=== PATIENT | female | born 1985 | race Caucasian/White ===

== ENCOUNTER 2016-12-21 21:54 | Emergency (ER) | payer BC, OTHER ==
--- NOTE | 2016-12-21 22:01 | EDM.PDOC ---
ED HPI GENERAL MEDICAL PROBLEM - General Chief Complaint: Skin Complaint Stated Complaint: RASH LT LEG Time Seen by Provider: 12/21/16 22:01 Source of Information: Reports: Patient - History of Present Illness INITIAL COMMENTS - FREE TEXT/NARRATIVE: HISTORY AND PHYSICAL: History of present illness: []Patient presents with area of cellulitis on her left lower extremity medial calf there is a red painful central nidus with area of tender skin surrounding approximately 2 inch in diameter consistent with cellulitis no fluctuance or drainage to the lesion No fever nausea vomiting chills sweats Review of systems: As per history of present illness and below otherwise all systems reviewed and negative. Past medical history: As per history of present illness and as reviewed below otherwise noncontributory. Surgical history: As per history of present illness and as reviewed below otherwise noncontributory. Social history: No reported history of drug or alcohol abuse. Family history: As per history of present illness and as reviewed below otherwise noncontributory. Physical exam: HEENT: Atraumatic, normocephalic, pupils reactive, negative for conjunctival pallor or scleral icterus, mucous membranes moist, throat clear, neck supple, nontender, trachea midline. Lungs: Clear to auscultation, breath sounds equal bilaterally, chest nontender. Heart: S1S2, regular, negative for clicks, rubs, or JVD. Abdomen: Soft, nondistended, nontender. Negative for masses or hepatosplenomegaly. Negative for costovertebral tenderness. Pelvis: Stable nontender. Genitourinary: Deferred. Rectal: Deferred. Extremities: Atraumatic, negative for cords or calf pain. Neurovascular unremarkable. Neuro: Awake, alert, oriented. Cranial nerves II through XII unremarkable. Cerebellum unremarkable. Motor and sensory unremarkable throughout. Exam nonfocal. Diagnostics: []No exudate for culture Lesion demarcated with skin pen Therapeutics: []Bactrim double strength by mouth twice a day #20 no refill 1 tab by mouth now provided from stock Impression: []Cellulitis Definitive disposition and diagnosis as appropriate pending reevaluation and review of above. left lower leg Pain Score (Numeric/FACES): 5 - Related Data Allergies Allergy/AdvReac Type Severity Reaction Status Date / Time No Known Allergies Allergy Verified 12/21/16 22:04 Home Meds: Home Meds . [No Known Home Meds] 12/21/16 [History] ED ROS GENERAL - Review of Systems Review Of Systems: ROS reveals no pertinent complaints other than HPI. ED EXAM, SKIN/RASH Exam: See Below Course - Vital Signs Last Recorded V/S: Last Vital Signs Temp 36.9 C 12/21/16 22:05 Pulse 98 12/21/16 22:05 Resp 16 12/21/16 22:05 BP 127/75 12/21/16 22:05 Pulse Ox 98 12/21/16 22:05 - Orders/Labs/Meds Orders: Active Orders 24 hr Category Date Time Status Sulfamethoxazole/Trimethoprim [Septra DS] Med 12/21/16 22:13 Once 1 tab PO ONETIME ONE Departure - Departure Time of Disposition: 22:15 Disposition: Home, Self-Care 01 Condition: Good Clinical Impression: Cellulitis - Discharge Information Forms: ED Department Discharge Additional Instructions: Medication as prescribed Return if symptoms persist or worsen despite antibiotics Return if fever nausea vomiting chills sweats should they develop Follow-up with primary care in 2 weeks The following information is given to patients seen in the emergency department who are being discharged to home. This information is to outline your options for follow-up care. We provide all patients seen in our emergency department with a follow-up referral. The need for follow-up, as well as the timing and circumstances, are variable depending upon the specifics of your emergency department visit. If you don't have a primary care physician on staff, we will provide you with a referral. We always advise you to contact your personal physician following an emergency department visit to inform them of the circumstance of the visit and for follow-up with them and/or the need for any referrals to a consulting specialist. The emergency department will also refer you to a specialist when appropriate. This referral assures that you have the opportunity for follow-up care with a specialist. All of these measure are taken in an effort to provide you with optimal care, which includes your follow-up. Under all circumstances we always encourage you to contact your private physician who remains a resource for coordinating your care. When calling for follow-up care, please make the office aware that this follow-up is from your recent emergency room visit. If for any reason you are refused follow-up, please contact the [facility] emergency department at and asked to speak to the emergency department charge nurse. - My Orders Last 24 Hours: My Active Orders 12/21/16 22:13 Sulfamethoxazole/Trimethoprim [Septra DS] 1 tab PO ONETIME ONE - Assessment/Plan Last 24 Hours: My Active Orders 12/21/16 22:13 Sulfamethoxazole/Trimethoprim [Septra DS] 1 tab PO ONETIME ONE
[2016-12-21] MEDS ORDERED: Sulfamethoxazole/Trimethoprim 800-160 MG Tab PO ONE (22:13)
[2016-12-21 22:30] VITALS: BP 122/80
== END 2016-12-21 22:27 | disposition home or self-care (01) ==
LOC: MW.ED 21:54
DX: L03.116 Cellulitis of left lower limb (principal)
CPT/HCPCS: 99283; A9270

== ENCOUNTER 2017-10-04 11:50 | Inpatient (IN) | payer BC ==
[2017-10-04] MEDS ORDERED: Butorphanol 1 MG/ML SDV IVPUSH PRN (12:13)
[2017-10-04] MEDS ORDERED: Methylergonovine 0.2 MG/1 ML Amp IM PRN (12:13)
[2017-10-04] MEDS ORDERED: Sodium Chloride 0.9% 2.5 ML Syringe FLUSH PRN (12:13)
[2017-10-04] MEDS ORDERED: Lidocaine 1% 50 ML MDV INJECT PRN (12:13)
[2017-10-04] MEDS ORDERED: Nalbuphine 10 MG/1 ML Vial IVPUSH PRN (12:13)
[2017-10-04] MEDS ORDERED: Tranexamic Acid 1,000 MG in Sodium Chloride 0.9% 100 ML IV PRN (12:13)
[2017-10-04] MEDS ORDERED: Carboprost Tromethamine 250 MCG/1 ML Amp IM PRN (12:13)
[2017-10-04] MEDS ORDERED: Water For Irrigation,Sterile 1,000 ML Container IRR PRN (12:13)
[2017-10-04] MEDS ORDERED: Misoprostol 200 MCG Tab PO PRN (12:13)
[2017-10-04] MEDS ORDERED: Sodium Chloride 0.9% 10 ML Syringe FLUSH PRN (12:13)
[2017-10-04] MEDS ORDERED: Oxytocin/0.9 % Sodium Chloride 30 UNIT/500 ML BAG IV SCH (12:15)
--- NOTE | 2017-10-04 12:35 | PCM.LDHP ---
L&D History of Present Illness - General Date of Service: 10/04/17 Admit Problem/Dx: Patient Status Order with Admit Dx/Problem 10/04/17 12:14 Patient Status [ADT] Routine Admission Diagnosis/Problem Admission Diagnosis/Problem - planned 10/04/17 12:31 31 yo EDC 10/02/2017 40 2/7wks gest. O+, R-equivocal, GBS neg. SROM mec stained fluid, trans labor 7cm Source of Information: Patient History Limitations: Reports: No Limitations - History of Present Illness Timing/Duration: Reports: minutes: Location, : Reports: Abdomen Quality: Reports: Stabbing Severity: Moderate Improves with: Reports: None Worsens with: Reports: None Associated Symptoms: Reports: N - Related Data Allergies/Adverse Reactions: Allergies Allergy/AdvReac Type Severity Reaction Status Date / Time No Known Allergies Allergy Verified 12/21/16 22:04 Home Medications: Home Meds . [No Known Home Meds] 12/21/16 [History] Past Medical History HEENT History: Reports: None Cardiovascular History: Reports: None Respiratory History: Reports: None Gastrointestinal History: Reports: None Genitourinary History: Reports: None FLOOR WAXER History: Reports: None Musculoskeletal History: Reports: None Neurological History: Reports: None Psychiatric History: Reports: None Endocrine/Metabolic History: Reports: None Hematologic History: Reports: None Immunologic History: Reports: None Oncologic (Cancer) History: Reports: None Dermatologic History: Reports: None - Infectious Disease History Infectious Disease History: Reports: Chicken Pox - Past Surgical History Head Surgeries/Procedures: Reports: None Social & Family History - Family History Family Medical History: Noncontributory - Tobacco Use Smoking Status *Q: Never Smoker - Caffeine Use Caffeine Use: Reports: Coffee, Soda, Tea - Recreational Drug Use Recreational Drug Use: No H&P Review of Systems - Review of Systems: Review Of Systems: See Below General: Reports: No Symptoms HEENT: Reports: No Symptoms Pulmonary: Reports: No Symptoms Cardiovascular: Reports: No Symptoms Gastrointestinal: Reports: No Symptoms Genitourinary: Reports: No Symptoms Musculoskeletal: Reports: No Symptoms Skin: Reports: No Symptoms Psychiatric: Reports: No Symptoms Neurological: Reports: No Symptoms Hematologic/Lymphatic: Reports: No Symptoms Immunologic: Reports: No Symptoms L&D Exam - Exam Exam: See Below - Vital Signs Weight: 89.811 kg - OB Specific Movement: Active Heart Tones: Present Presentation: Vertex - Roblero Score Roblero Score Cervix Position: Anterior Roblero Score Consistency: Soft Roblero Score Effacement: >80% Roblero Score Dilation: > 5 cm Roblero Score Infant's Station: -1 ,0 Roblero Score Total: 12 - Exam General: Alert, Oriented, Cooperative HEENT: Hearing Intact Lungs: Clear to Auscultation, Normal Respiratory Effort Cardiovascular: Regular Rate, Regular Rhythm, Normal S1, Normal S2 GI/Abdominal Exam: Soft Rectal Exam: Deferred Genitourinary: Cervical fluid Back Exam: Full Range of Motion Extremities: Normal Range of Motion, Non-Tender, No Pedal Edema, Normal Capillary Refill Skin: Warm, Dry, Intact Neurological: Reflexes Equal Bilateral, Normal Speech, Normal Tone Psychiatric: Alert, Normal Affect, Normal Mood - Problem List (1) Supervision of normal IUP (intrauterine ) in primigravida SNOMED Code(s): 20108586, 671883762, 454835694, 933088132 ICD Code: Z34.00 - ENCNTR FOR SUPRVSN OF NORMAL FIRST , UNSP TRIMESTER Status: Acute Priority: High Current Visit: Yes Qualifiers: Trimester: third trimester Qualified Code(s): Z34.03 - Encounter for supervision of normal first , third trimester (2) SROM (spontaneous rupture of membranes) SNOMED Code(s): 349445512 ICD Code: EMY3037 - Status: Acute Priority: High Current Visit: Yes (3) Meconium in amniotic fluid affecting management of mother in third trimester SNOMED Code(s): 79501412, 16372103 ICD Code: O36.8930 - MATERNAL CARE FOR OTH PROBLEMS, THIRD TRIMESTER, UNSP Status: Acute Priority: High Current Visit: Yes Qualifiers: Fetus number: single or unspecified fetus Qualified Code(s): O36.8930 - Maternal care for other specified problems, third trimester, not applicable or unspecified Problem List Initiated/Reviewed/Updated: Yes Orders Last 24hrs: Active Orders 24 hr Category Date Time Status Patient Status [ADT] Routine ADT 10/04/17 12:14 Active Heart Tones [RC] CONTINUOUS Care 10/04/17 12:14 Active Non Stress Test [RC] PER UNIT ROUTINE Care 10/04/17 12:14 Active May Shower [RC] ASDIRECTED Care 10/04/17 12:14 Active Notify Provider [RC] PRN Care 10/04/17 12:14 Active Up ad [place] [RC] ASDIRECTED Care 10/04/17 12:14 Active Vaginal Exam [RC] PRN Care 10/04/17 12:14 Active Vital Signs [RC] PER UNIT ROUTINE Care 10/04/17 12:14 Active CBC W/O DIFF,HEMOGRAM [HEME] Routine Lab 10/04/17 12:14 Ordered TYPE AND SCREEN [BBK] Routine Lab 10/04/17 12:14 Ordered Butorphanol [Stadol] Med 10/04/17 12:13 Active 1 mg IVPUSH Q1H PRN Carboprost Tromethamine [Hemabate DS] Med 10/04/17 12:13 Active 250 mcg IM ASDIRECTED PRN Lactated Ringers [Ringers, Lactated] 1,000 ml Med 10/04/17 12:15 Active IV ASDIRECTED Lidocaine 1% [Xylocaine 1%] Med 10/04/17 12:13 Active 50 ml INJECT .ONCE PRN Methylergonovine [Methergine] Med 10/04/17 12:13 Active 0.2 mg IM ASDIRECTED PRN Misoprostol [Cytotec] Med 10/04/17 12:13 Active 200 mcg PO .ONCE PRN Nalbuphine [Nubain] Med 10/04/17 12:13 Active 10 mg IVPUSH Q1H PRN Oxytocin/0.9 % Sodium Chloride [Oxytocin 30 Unit/500 ML Med 10/04/17 12:15 Active -NS] 30 unit in 500 ml IV TITRATE Sodium Chloride 0.9% [Saline Flush] Med 10/04/17 12:13 Active 10 ml FLUSH ASDIRECTED PRN Sodium Chloride 0.9% [Saline Flush] Med 10/04/17 12:13 Active 2.5 ml FLUSH ASDIRECTED PRN Tranexamic Acid [Cyklokapron] 1,000 mg Med 10/04/17 12:13 Active Sodium Chloride 0.9% [Normal Saline] 100 ml IV ONETIME Water For Irrigation,Sterile [Sterile Water for Med 10/04/17 12:13 Active Irrigation] 1,000 ml IRR ASDIRECTED PRN Scalp Electrode [WOMSER] Per Unit Routine Oth 10/04/17 12:14 Ordered Peripheral IV Insertion Adult [OM.PC] Routine Oth 10/04/17 12:14 Ordered Resuscitation Status Routine Resus Stat 10/04/17 12:13 Ordered Medication Orders Butorphanol Tartrate (Stadol) 1 mg IVPUSH Q1H PRN PRN Reason: Pain Carboprost Tromethamine (Hemabate Ds) 250 mcg IM ASDIRECTED PRN PRN Reason: Post Hemorrhage Lactated Ringer's (Ringers, Lactated) 1,000 mls @ 150 mls/hr IV ASDIRECTED LYUBOV Oxytocin/Sodium Chloride (Oxytocin 30 Unit/500 Ml-Ns) 30 unit in 500 mls @ 2 mls/hr IV TITRATE LYUBOV Tranexamic Acid 1,000 mg/ (Sodium Chloride) 110 mls @ 660 mls/hr IV ONETIME PRN PRN Reason: Bleeding Lidocaine HCl (Xylocaine 1%) 50 ml INJECT .ONCE PRN PRN Reason: Laceration repair Methylergonovine Maleate (Methergine) 0.2 mg IM ASDIRECTED PRN PRN Reason: Post Hemorrhage Misoprostol (Cytotec) 200 mcg PO .ONCE PRN PRN Reason: Post Hemorrhage Nalbuphine HCl (Nubain) 10 mg IVPUSH Q1H PRN PRN Reason: Pain (severe 7-10) Sodium Chloride (Saline Flush) 10 ml FLUSH ASDIRECTED PRN PRN Reason: Keep Vein Open Sodium Chloride (Saline Flush) 2.5 ml FLUSH ASDIRECTED PRN PRN Reason: Keep Vein Open Sterile Water (Sterile Water For Irrigation) 1,000 ml IRR ASDIRECTED PRN PRN Reason: delivery Assessment/Plan Comment:: Labor A: 31 yo EDC 10/02/2017 40 2/7wks gest. O+, R-equivocal, GBS neg. SROM mec stained fluid, trans labor 7cm P: Admit, pain mngt prn, mec stained fluid, Peds notified, anticipate . Dr Dunbar updated
[2017-10-04] MEDS ORDERED: Ropivacaine 0.2% 2 MG/ML 20 ML SDV ONE (12:54)
[2017-10-04] MEDS: Lactated Ringers 1,000 ML IV SCH ×3 (13:06→15:47)
--- NOTE | 2017-10-04 13:23 | PCM.PREANE ---
Preanesthetic Assessment - Procedure Proposed Procedure: labor epidural - Anesthesia/Transfusion/Family Hx Anesthesia History: Prior Anesthesia Without Reaction Family History of Anesthesia Reaction: No - Review of Systems Other: Reports: None - Physical Assessment Height: 6 ft 1 in Weight: 89.811 kg ASA Class: 2 Mental Status: Alert & Oriented x3 Airway Class: Mallampati = 3 Dentition: Reports: Normal Dentition Thyro-Mental Finger Breadths: 2 Mouth Opening Finger Breadths: 3 ROM/Head Extension: Full - Lab Values: Laboratory Last Values WBC 12.54 K/uL (4.0-11.0) H 10/04/17 12:34 RBC 4.31 M/uL (4.30-5.90) 10/04/17 12:34 Hgb 13.5 g/dL (12.0-16.0) 10/04/17 12:34 Hct 38.2 % (36.0-46.0) 10/04/17 12:34 MCV 88.6 fL (80.0-98.0) 10/04/17 12:34 MCH 31.3 pg (27.0-32.0) 10/04/17 12:34 MCHC 35.3 g/dL (31.0-37.0) 10/04/17 12:34 RDW Std Deviation 44.2 fl (28.0-62.0) 10/04/17 12:34 RDW Coeff of Chandu 14 % (11.0-15.0) 10/04/17 12:34 Plt Count 156 K/uL (150-400) 10/04/17 12:34 MPV 11.70 fL (7.40-12.00) 10/04/17 12:34 Nucleated RBC % 0.0 /100WBC 10/04/17 12:34 Nucleated RBCs # 0 K/uL 10/04/17 12:34 - Allergies Allergies/Adverse Reactions: Allergies Allergy/AdvReac Type Severity Reaction Status Date / Time No Known Allergies Allergy Verified 12/21/16 22:04 - Blood Blood Available: Yes Product(s) Available: PRBC - Acknowledgements Anesthesia Type Planned: Epidural Pt an Appropriate Candidate for the Planned Anesthesia: Yes Alternatives and Risks of Anesthesia Discussed w Pt/Guardian: Yes Pt/Guardian Understands and Agrees with Anesthesia Plan: Yes PreAnesthesia Questionnaire HEENT History: Reports: None Cardiovascular History: Reports: None Respiratory History: Reports: None Gastrointestinal History: Reports: None Genitourinary History: Reports: None BUSINESS OBJECTS DEVELOPER History: Reports: None Musculoskeletal History: Reports: None Neurological History: Reports: None Psychiatric History: Reports: None Endocrine/Metabolic History: Reports: None Hematologic History: Reports: None Immunologic History: Reports: None Oncologic (Cancer) History: Reports: None Dermatologic History: Reports: None - Infectious Disease History Infectious Disease History: Reports: Chicken Pox - Past Surgical History Head Surgeries/Procedures: Reports: None - SUBSTANCE USE Smoking Status *Q: Never Smoker Recreational Drug Use History: No - HOME MEDS Home Medications: Home Meds . [No Known Home Meds] 12/21/16 [History] - CURRENT (IN HOUSE) MEDS Current Meds: Current Medications Butorphanol Tartrate (Stadol) 1 mg IVPUSH Q1H PRN PRN Reason: Pain Carboprost Tromethamine (Hemabate Ds) 250 mcg IM ASDIRECTED PRN PRN Reason: Post Hemorrhage Lactated Ringer's (Ringers, Lactated) 1,000 mls @ 150 mls/hr IV ASDIRECTED LYUBOV Last Admin: 10/04/17 13:06 Dose: 150 mls/hr Oxytocin/Sodium Chloride (Oxytocin 30 Unit/500 Ml-Ns) 30 unit in 500 mls @ 2 mls/hr IV TITRATE LYUBOV Tranexamic Acid 1,000 mg/ (Sodium Chloride) 110 mls @ 660 mls/hr IV ONETIME PRN PRN Reason: Bleeding Lidocaine HCl (Xylocaine 1%) 50 ml INJECT .ONCE PRN PRN Reason: Laceration repair Methylergonovine Maleate (Methergine) 0.2 mg IM ASDIRECTED PRN PRN Reason: Post Hemorrhage Misoprostol (Cytotec) 200 mcg PO .ONCE PRN PRN Reason: Post Hemorrhage Nalbuphine HCl (Nubain) 10 mg IVPUSH Q1H PRN PRN Reason: Pain (severe 7-10) Sodium Chloride (Saline Flush) 10 ml FLUSH ASDIRECTED PRN PRN Reason: Keep Vein Open Sodium Chloride (Saline Flush) 2.5 ml FLUSH ASDIRECTED PRN PRN Reason: Keep Vein Open Sterile Water (Sterile Water For Irrigation) 1,000 ml IRR ASDIRECTED PRN PRN Reason: delivery Discontinued Medications Fentanyl/Bupivacaine HCl (Fnellvps-Shmio-Pd 2 Mcg/Ml-0.125%) Confirm Administered Dose 100 mls @ as directed EP .STK-MED ONE Stop: 10/04/17 12:55 Ropivacaine (Naropin 0.2%) Confirm Administered Dose 20 ml .ROUTE .STK-MED ONE Stop: 10/04/17 12:55
[2017-10-04] MEDS ORDERED: Bisacodyl 10 MG Supp RECTAL PRN (18:38)
[2017-10-04] MEDS ORDERED: Benzocaine/Menthol 20%-0.5% Spray 78 GM Cannister TOP PRN (18:38)
[2017-10-04] MEDS ORDERED: Witch Hazel Medicated Pads 40/Jar TOP PRN (18:38)
[2017-10-04] MEDS ORDERED: Acetaminophen 500 MG Tab PO PRN ×2 (18:38)
[2017-10-04] MEDS ORDERED: Ibuprofen 400 MG Tab PO PRN (18:38)
[2017-10-04] MEDS ORDERED: Docusate Sodium 100 MG Cap PO PRN (18:38)
[2017-10-04] MEDS ORDERED: Lanolin 100% Cream 7 GM Tube TOP PRN (18:38)
[2017-10-04] MEDS ORDERED: oxyCODONE 5 MG Tab PO PRN (18:38)
[2017-10-05] MEDS: Ibuprofen 800 MG Tab PO PRN ×2 (03:48→23:04)
--- NOTE | 2017-10-05 07:49 | PCM48HPAN ---
Post Anesthesia Note - EVALUATION WITHIN 48HRS OF ANESTHETIC Vital Signs in Normal Range: Yes Patient Participated in Evaluation: Yes Respiratory Function Stable: Yes Airway Patent: Yes Cardiovascular Function Stable: Yes Hydration Status Stable: Yes Pain Control Satisfactory: Yes Nausea and Vomiting Control Satisfactory: Yes Mental Status Recovered: Yes Resp Rate: 16
--- NOTE | 2017-10-05 09:13 | OR ---
SURGEON: Rito Dunbar MD DATE OF PROCEDURE: 10/04/2017 DELIVERY NOTE: Ms. Romero is 31-year-old primigravida. She is followed in our clinic primarily by our nurse grapple crew leader. She is 40 weeks' . She is term. She is admitted in active labor. At the time of admission, she was 7 cm with intact membrane and her GBS status was negative. The patient had an artificial rupture of membrane. She had epidural anesthesia for labor analgesia. The patient progressed adequately until complete +2 station, and she pushed in excess of an hour. She was exhausted. I was consulted for possible vacuum extraction. At the time of my arrival, vital signs were stable. heart rate was category I. My examination showed the patient in vertex presentation, straight OA, and when the patient pushed, it was +2 to +3. I consulted with the patient about the vacuum extraction. After explaining and obtaining consent for that, Kiwi vacuum extraction was applied. With a couple of pushes and pulling, the patient was able to accomplish vaginal delivery of male fetus. The baby cried immediately. score is reported to be 8 and 9. The weight is [address] Leo has attended the delivery, and he has participated in the baby resuscitation. The placenta delivered spontaneous, complete, and intact. The patient had a first-degree perineal laceration and first-degree labial laceration, and I repaired both lacerations with 3-0 Vicryl in layer without any problem. Estimated blood loss was 300-350 mL. There was no complication in the delivery. There was no complication in the labor. heart rate was category I through the entire process. MIKALA / WIL /[id number]
--- NOTE | 2017-10-05 11:30 | PCM.PNPP ---
- General Info Date of Service: 10/05/17 Functional Status: Reports: Pain Controlled - Review of Systems General: Reports: No Symptoms HEENT: Reports: No Symptoms Pulmonary: Reports: No Symptoms Cardiovascular: Reports: No Symptoms Gastrointestinal: Reports: No Symptoms Genitourinary: Reports: No Symptoms Musculoskeletal: Reports: No Symptoms Skin: Reports: No Symptoms Neurological: Reports: No Symptoms Psychiatric: Reports: No Symptoms - Patient Data Vital Signs - Most Recent: Last Vital Signs Temp 36.4 C 10/05/17 08:31 Pulse 95 10/05/17 08:31 Resp 18 10/05/17 08:31 BP 123/80 10/05/17 08:31 Pulse Ox 96 10/05/17 08:31 Weight - Most Recent: 89.811 kg Lab Results - Last 24 Hours: Laboratory Results - last 24 hr 10/04/17 10/04/17 Range/Units 12:34 12:34 WBC 12.54 H (4.0-11.0) K/uL RBC 4.31 (4.30-5.90) M/uL Hgb 13.5 (12.0-16.0) g/dL Hct 38.2 (36.0-46.0) % MCV 88.6 (80.0-98.0) fL MCH 31.3 (27.0-32.0) pg MCHC 35.3 (31.0-37.0) g/dL RDW Std Deviation 44.2 (28.0-62.0) fl RDW Coeff of Chandu 14 (11.0-15.0) % Plt Count 156 (150-400) K/uL MPV 11.70 (7.40-12.00) fL Nucleated RBC % 0.0 /100WBC Nucleated RBCs # 0 K/uL Blood Type O POSITIVE Antibody Screen NEGATIVE Med Orders - Current: Current Medications Acetaminophen (Tylenol Extra Strength) 500 mg PO Q4H PRN PRN Reason: Pain Acetaminophen (Tylenol Extra Strength) 1,000 mg PO Q4H PRN PRN Reason: Pain Benzocaine/Menthol (Dermoplast Pain Relief 20%-0.5% [place]) 0 gm TOP ASDIRECTED PRN PRN Reason: Perineal Comfort Measure Bisacodyl (Dulcolax) 10 mg RECTAL .ONCE PRN PRN Reason: Constipation Docusate Sodium (Colace) 100 mg PO BID PRN PRN Reason: Constipation Emollient Ointment (Lansinoh Hpa) 0 gm TOP ASDIRECTED PRN PRN Reason: Sore Nipples Ibuprofen (Motrin) 400 mg PO Q4H PRN PRN Reason: Pain Ibuprofen (Motrin) 800 mg PO Q6H PRN PRN Reason: Pain Last Admin: 10/05/17 03:48 Dose: 800 mg Oxycodone HCl (Oxycodone) 5 mg PO Q2H PRN PRN Reason: Pain Witch Adelina (Tucks) 1 pad TOP ASDIRECTED PRN PRN Reason: comfort care Discontinued Medications Butorphanol Tartrate (Stadol) 1 mg IVPUSH Q1H PRN PRN Reason: Pain Carboprost Tromethamine (Hemabate Ds) 250 mcg IM ASDIRECTED PRN PRN Reason: Post Hemorrhage Lactated Ringer's (Ringers, Lactated) 1,000 mls @ 150 mls/hr IV ASDIRECTED [facility] Last Admin: 10/04/17 15:47 Dose: 150 mls/hr Oxytocin/Sodium Chloride (Oxytocin 30 Unit/500 Ml-Ns) 30 unit in 500 mls @ 2 mls/hr IV TITRATE [facility] Last Admin: 10/04/17 18:40 Dose: 2 mls/hr Tranexamic Acid 1,000 mg/ (Sodium Chloride) 110 mls @ 660 mls/hr IV ONETIME PRN PRN Reason: Bleeding Fentanyl/Bupivacaine HCl (Opbxqbzq-Wddto-Hk 2 Mcg/Ml-0.125%) Confirm Administered Dose 100 mls @ as directed EP .STK-MED ONE Stop: 10/04/17 12:55 Lidocaine HCl (Xylocaine 1%) 50 ml INJECT .ONCE PRN PRN Reason: Laceration repair Methylergonovine Maleate (Methergine) 0.2 mg IM ASDIRECTED PRN PRN Reason: Post Hemorrhage Misoprostol (Cytotec) 200 mcg PO .ONCE PRN PRN Reason: Post Hemorrhage Nalbuphine HCl (Nubain) 10 mg IVPUSH Q1H PRN PRN Reason: Pain (severe 7-10) Ropivacaine (Naropin 0.2%) Confirm Administered Dose 20 ml .ROUTE .STK-MED ONE Stop: 10/04/17 12:55 Sodium Chloride (Saline Flush) 10 ml FLUSH ASDIRECTED PRN PRN Reason: Keep Vein Open Sodium Chloride (Saline Flush) 2.5 ml FLUSH ASDIRECTED PRN PRN Reason: Keep Vein Open Sterile Water (Sterile Water For Irrigation) 1,000 ml IRR ASDIRECTED PRN PRN Reason: delivery Last Admin: 10/04/17 19:13 Dose: 1,000 ml - Infant Interaction Infant Disposition, : in Room with Family Infant Interaction: Holding Infant Feeding: Attempted ; Nursed Fair/Poor Support Person: - Recovery Exam Fundal Tone: Firm Fundal Level: 1 Fingerbreadths Below Umbilicus Fundal Placement: Midline Lochia Amount: Scant Lochia Color: Rubra/Red Perineum Description: Intact, Minimal Bruising/Swelling Episiotomy/Laceration: Approximated Bladder Status: Voiding Urinary Elimination: Voided Other Urinary Elimination, : dizziness while up to bathroom - Exam General: Alert, Oriented HEENT: Pupils Equal Neck: Supple Lungs: Clear to Auscultation, Normal Respiratory Effort Cardiovascular: Regular Rate, Regular Rhythm GI/Abdominal Exam: Normal Bowel Sounds, Soft, Non-Tender, No Organomegaly, No Distention, No Abnormal Bruit, No Mass, Pelvis Stable Extremities: Normal Inspection, Normal Range of Motion, Non-Tender, No Pedal Edema, Normal Capillary Refill Skin: Warm, Dry, Intact Wound/Incisions: Healing Well Neurological: No New Focal Deficit Psy/Mental Status: Alert, Normal Affect, Normal Mood - Problem List Review Problem List Initiated/Reviewed/Updated: Yes - Assessment Assessment:: Status post vacuum extraction day #1 patient is doing well with episiotomy is healing there is minimum bleeding - Plan Plan:: Labor A: 31 yo EDC 10/02/2017 40 2/7wks gest. O+, R-equivocal, GBS neg. SROM mec stained fluid, trans labor 7cm P: Admit, pain mngt prn, mec stained fluid, Peds notified, anticipate . Dr Dunbar updated
[2017-10-06] MEDS: Ibuprofen 800 MG Tab PO PRN (07:28)
[2017-10-06 07:35] VITALS: BP 121/82
--- NOTE | 2017-10-06 08:36 | PCM.PNPP ---
- General Info Date of Service: 10/06/17 Functional Status: Reports: Pain Controlled - Review of Systems General: Reports: No Symptoms HEENT: Reports: No Symptoms Pulmonary: Reports: No Symptoms Cardiovascular: Reports: No Symptoms Gastrointestinal: Reports: No Symptoms Genitourinary: Reports: No Symptoms Musculoskeletal: Reports: No Symptoms Skin: Reports: No Symptoms Neurological: Reports: No Symptoms Psychiatric: Reports: No Symptoms - General Info Date of Service: 10/06/17 - Patient Data Vital Signs - Most Recent: Last Vital Signs Temp 36.8 C 10/06/17 07:33 Pulse 98 10/06/17 07:33 Resp 16 10/06/17 07:33 BP 121/82 10/06/17 07:33 Pulse Ox 97 10/06/17 07:33 Weight - Most Recent: 89.811 kg Med Orders - Current: Current Medications Acetaminophen (Tylenol Extra Strength) 500 mg PO Q4H PRN PRN Reason: Pain Acetaminophen (Tylenol Extra Strength) 1,000 mg PO Q4H PRN PRN Reason: Pain Benzocaine/Menthol (Dermoplast Pain Relief 20%-0.5% [place]) 0 gm TOP ASDIRECTED PRN PRN Reason: Perineal Comfort Measure Bisacodyl (Dulcolax) 10 mg RECTAL .ONCE PRN PRN Reason: Constipation Docusate Sodium (Colace) 100 mg PO BID PRN PRN Reason: Constipation Emollient Ointment (Lansinoh Hpa) 0 gm TOP ASDIRECTED PRN PRN Reason: Sore Nipples Ibuprofen (Motrin) 400 mg PO Q4H PRN PRN Reason: Pain Ibuprofen (Motrin) 800 mg PO Q6H PRN PRN Reason: Pain Last Admin: 10/06/17 07:28 Dose: 800 mg Oxycodone HCl (Oxycodone) 5 mg PO Q2H PRN PRN Reason: Pain Witch Adelina (Tucks) 1 pad TOP ASDIRECTED PRN PRN Reason: comfort care Discontinued Medications Butorphanol Tartrate (Stadol) 1 mg IVPUSH Q1H PRN PRN Reason: Pain Carboprost Tromethamine (Hemabate Ds) 250 mcg IM ASDIRECTED PRN PRN Reason: Post Hemorrhage Lactated Ringer's (Ringers, Lactated) 1,000 mls @ 150 mls/hr IV ASDIRECTED LYUBOV Last Admin: 10/04/17 15:47 Dose: 150 mls/hr Oxytocin/Sodium Chloride (Oxytocin 30 Unit/500 Ml-Ns) 30 unit in 500 mls @ 2 mls/hr IV TITRATE [facility] Last Admin: 10/04/17 18:40 Dose: 2 mls/hr Tranexamic Acid 1,000 mg/ (Sodium Chloride) 110 mls @ 660 mls/hr IV ONETIME PRN PRN Reason: Bleeding Fentanyl/Bupivacaine HCl (Laollrou-Frqjc-Me 2 Mcg/Ml-0.125%) Confirm Administered Dose 100 mls @ as directed EP .Gigamon-MED ONE Stop: 10/04/17 12:55 Lidocaine HCl (Xylocaine 1%) 50 ml INJECT .ONCE PRN PRN Reason: Laceration repair Methylergonovine Maleate (Methergine) 0.2 mg IM ASDIRECTED PRN PRN Reason: Post Hemorrhage Misoprostol (Cytotec) 200 mcg PO .ONCE PRN PRN Reason: Post Hemorrhage Nalbuphine HCl (Nubain) 10 mg IVPUSH Q1H PRN PRN Reason: Pain (severe 7-10) Ropivacaine (Naropin 0.2%) Confirm Administered Dose 20 ml .ROUTE .Gigamon-MED ONE Stop: 10/04/17 12:55 Sodium Chloride (Saline Flush) 10 ml FLUSH ASDIRECTED PRN PRN Reason: Keep Vein Open Sodium Chloride (Saline Flush) 2.5 ml FLUSH ASDIRECTED PRN PRN Reason: Keep Vein Open Sterile Water (Sterile Water For Irrigation) 1,000 ml IRR ASDIRECTED PRN PRN Reason: delivery Last Admin: 10/04/17 19:13 Dose: 1,000 ml - Interaction Disposition, : in Room with Family Infant Interaction: Holding Infant Feeding: Attempted ; Nursed Fair/Poor Support Person: - Recovery Exam Fundal Tone: Firm Fundal Level: 1 Fingerbreadths Below Umbilicus Fundal Placement: Midline Lochia Amount: Scant Lochia Color: Rubra/Red Perineum Description: Intact, Minimal Bruising/Swelling Episiotomy/Laceration: None Bladder Status: Voiding Urinary Elimination: Voided Other Urinary Elimination, : dizziness while up to bathroom - Exam General: Alert, Oriented HEENT: Pupils Equal Neck: Supple Lungs: Clear to Auscultation, Normal Respiratory Effort Cardiovascular: Regular Rate, Regular Rhythm GI/Abdominal Exam: Normal Bowel Sounds, Soft, Non-Tender, No Organomegaly, No Distention, No Abnormal Bruit, No Mass, Pelvis Stable Extremities: Normal Inspection, Normal Range of Motion, Non-Tender, No Pedal Edema, Normal Capillary Refill Skin: Warm, Dry, Intact Wound/Incisions: Healing Well Neurological: No New Focal Deficit Psy/Mental Status: Alert, Normal Affect, Normal Mood - Problem List Review Problem List Initiated/Reviewed/Updated: Yes - Assessment Assessment:: Status post vacuum extraction day #1 patient is doing well with episiotomy is healing there is minimum bleeding - Plan Plan:: Labor A: 31 yo EDC 10/02/2017 40 2/7wks gest. O+, R-equivocal, GBS neg. SROM mec stained fluid, trans labor 7cm P: Admit, pain mngt prn, mec stained fluid, Peds notified, anticipate . Dr Dunbar updated
== END 2017-10-06 11:25 | disposition home or self-care (01) | DRG 560 ==
LOC: MW.OB 11:50 → OBSVTOIN 18:39 → MW.OB 23:59
PROVIDERS: ADMIT Advanced Practice Midwife; ATTEND Obstetrics & Gynecology
PROC: 10D07Z6 Extraction of Products of Conception, Vacuum, Via Natural or Artificial Opening (ICD-10-PCS; principal; 2017-10-04)
PROC: 10907ZC Drainage of Amniotic Fluid, Therapeutic from Products of Conception, Via Natural or Artificial Opening (ICD-10-PCS; 2017-10-04)
PROC: 0UQMXZZ Repair Vulva, External Approach (ICD-10-PCS; 2017-10-04)
PROC: 00HU33Z Insertion of Infusion Device into Spinal Canal, Percutaneous Approach (ICD-10-PCS; 2017-10-04)
PROC: 3E0R3BZ Introduction of Anesthetic Agent into Spinal Canal, Percutaneous Approach (ICD-10-PCS; 2017-10-04)
DX: O77.0 Labor and delivery complicated by meconium in amniotic fluid (principal); O75.81 Maternal exhaustion complicating labor and delivery; Z3A.40 40 weeks gestation of pregnancy; Z37.0 Single live birth; O70.0 First degree perineal laceration during delivery
CPT/HCPCS: 36415; 51702; 59025; 59409; 85027; 86850; 86900; 86901; A9270-GY; J2590; J2795; J7120

== ENCOUNTER 2020-03-11 13:44 | Inpatient (IN) | payer BC, OTHER ==
[2020-03-11] MEDS ORDERED: Lidocaine 1% 50 ML MDV INJECT PRN (14:05)
[2020-03-11] MEDS ORDERED: Water For Irrigation,Sterile 1,000 ML Container IRR PRN (14:05)
[2020-03-11] MEDS ORDERED: Carboprost Tromethamine 250 MCG/1 ML Amp IM PRN (14:05)
[2020-03-11] MEDS ORDERED: Nalbuphine 10 MG/1 ML Vial IVPUSH PRN (14:05)
[2020-03-11] MEDS ORDERED: Sodium Chloride 0.9% 10 ML Syringe FLUSH PRN (14:05)
[2020-03-11] MEDS ORDERED: Butorphanol 1 MG/ML SDV IVPUSH PRN (14:05)
[2020-03-11] MEDS ORDERED: Tranexamic Acid 1,000 MG in Sodium Chloride 0.9% 100 ML IV PRN (14:05)
[2020-03-11] MEDS ORDERED: Sodium Chloride 0.9% 2.5 ML Syringe FLUSH PRN (14:05)
[2020-03-11] MEDS ORDERED: Sodium Chloride 0.9% 10 ML SDV IV PRN (14:05)
[2020-03-11] MEDS ORDERED: Misoprostol 200 MCG Tab PO PRN (14:05)
[2020-03-11] MEDS ORDERED: Methylergonovine 0.2 MG/1 ML Amp IM PRN (14:05)
[2020-03-11] MEDS ORDERED: Terbutaline 1 MG/ML SDV SUBCUT PRN (14:09)
[2020-03-11] MEDS ORDERED: Oxytocin/0.9 % Sodium Chloride 30 UNIT/500 ML BAG IV SCH ×2 (14:15)
--- NOTE | 2020-03-11 14:35 | PCM.LDHP ---
L&D History of Present Illness - General Date of Service: 03/11/20 Admit Problem/Dx: Patient Status Order with Admit Dx/Problem 03/11/20 14:06 Patient Status [ADT] Routine Admission Diagnosis/Problem Admission Diagnosis/Problem 03/11/20 14:28 presenting at 38 3/7 weeks with grossly ruptured membranes; reports SROM clear at 0545 today. Denies regular uterine contractions at this time; uterine irritability noted on strip. O+, Rubella-immune, GBS negative. SVE per nurse report: 5cm/70%/-3. 03/11/20 14:36 Source of Information: Patient History Limitations: Reports: No Limitations - Related Data Allergies/Adverse Reactions: Allergies Allergy/AdvReac Type Severity Reaction Status Date / Time No Known Allergies Allergy Verified 12/21/16 22:04 Home Medications: Home Meds . 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 Musculoskeletal History: Reports: None Neurological History: Reports: None Psychiatric History: Reports: None Endocrine/Metabolic History: Reports: None Hematologic History: Reports: None Immunologic History: Reports: None Oncologic (Cancer) History: Reports: None Dermatologic History: Reports: None - Infectious Disease History Infectious Disease History: Reports: Chicken Pox - Past Surgical History Head Surgeries/Procedures: Reports: None Social & Family History - Family History Family Medical History: Noncontributory - Caffeine Use Caffeine Use: Reports: Coffee, Soda, Tea H&P Review of Systems - Review of Systems: Review Of Systems: See Below General: Reports: No Symptoms HEENT: Reports: No Symptoms Pulmonary: Reports: No Symptoms Cardiovascular: Reports: No Symptoms Gastrointestinal: Reports: No Symptoms Genitourinary: Reports: No Symptoms Musculoskeletal: Reports: No Symptoms Skin: Reports: No Symptoms Psychiatric: Reports: No Symptoms Neurological: Reports: No Symptoms Hematologic/Lymphatic: Reports: No Symptoms Immunologic: Reports: No Symptoms L&D Exam - Exam Exam: See Below - OB Specific Contraction Intensity: Irritability Movement: Active Heart Tones: Present Heart Rate (FHR) Variability: Moderate (6-25 bmp) Presentation: Vertex - Roblero Score Roblero Score Consistency: Soft Roblero Score Effacement: 51-70% Roblero Score Dilation: > 5 cm Roblero Score 's Station: -3 - Exam General: Alert, Oriented, Cooperative Lungs: Normal Respiratory Effort Cardiovascular: Regular Rate, Regular Rhythm GI/Abdominal Exam: Soft, Non-Tender Rectal Exam: Deferred Genitourinary: Deferred Back Exam: Normal Inspection, Full Range of Motion Extremities: Normal Inspection, Normal Range of Motion, Non-Tender, Normal Capillary Refill Skin: Warm, Dry, Intact Neurological: Strength Equal Bilateral, Normal Speech, Normal Tone, Sensation Intact Psychiatric: Alert, Normal Affect, Normal Mood - Problem List (1) Supervision of normal IUP (intrauterine ) in multigravida SNOMED Code(s): 199706096, 841881406, [id number] ICD Code: Z34.80 - ENCOUNTER FOR SUPRVSN OF NORMAL , UNSP TRIMESTER Status: Acute Priority: High Current Visit: Yes Qualifiers: Trimester: third trimester Qualified Code(s): Z34.83 - Encounter for supervision of other normal , third trimester Problem List Initiated/Reviewed/Updated: Yes Orders Last 24hrs: Active Orders 24 hr Category Date Time Status Patient Status [ADT] Routine ADT 03/11/20 14:06 Active Communication Order [RC] ASDIRECTED Care 03/11/20 14:09 Active Heart Tones [RC] CONTINUOUS Care 03/11/20 14:06 Active Non Stress Test [RC] PER UNIT ROUTINE Care 03/11/20 14:06 Active May Shower [RC] ASDIRECTED Care 03/11/20 14:06 Active Notify Provider [RC] PRN Care 03/11/20 14:06 Active Notify Provider [RC] PRN Care 03/11/20 14:09 Active Notify Provider [RC] PRN Care 03/11/20 14:09 Active Notify Provider [RC] STAT Care 03/11/20 14:09 Active Up ad [place] [RC] ASDIRECTED Care 03/11/20 14:06 Active Vaginal Exam [RC] PRN Care 03/11/20 14:06 Active Vital Signs [RC] PER UNIT ROUTINE Care 03/11/20 14:06 Active CBC W/O DIFF,HEMOGRAM [HEME] Routine Lab 03/11/20 14:06 Ordered RPR (SYPHILIS SERO) W/ RFLX [REF] Routine Lab 03/11/20 14:06 Ordered TYPE AND SCREEN [BBK] Routine Lab 03/11/20 14:06 Ordered Butorphanol [Stadol] Med 03/11/20 14:05 Active 1 mg IVPUSH Q1H PRN Carboprost Tromethamine [Hemabate DS] Med 03/11/20 14:05 Active 250 mcg IM ASDIRECTED PRN Lactated Ringers [Ringers, Lactated] 1,000 ml Med 03/11/20 14:15 Active IV ASDIRECTED Lidocaine 1% [Xylocaine 1%] Med 03/11/20 14:05 Active 50 ml INJECT ONETIME PRN Methylergonovine [Methergine] Med 03/11/20 14:05 Active 0.2 mg IM ASDIRECTED PRN Nalbuphine [Nubain] Med 03/11/20 14:05 Active 10 mg IVPUSH Q1H PRN Oxytocin/0.9 % Sodium Chloride [Oxytocin 30 Unit/500 ML Med 03/11/20 14:15 Active -NS] 30 unit in 500 ml IV TITRATE Oxytocin/0.9 % Sodium Chloride [Oxytocin 30 Unit/500 ML Med 03/11/20 14:15 Active -NS] 30 unit in 500 ml IV TITRATE Sodium Chloride 0.9% [Normal Saline] Med 03/11/20 14:05 Active 10 ml IV ASDIRECTED PRN Sodium Chloride 0.9% [Saline Flush] Med 03/11/20 14:05 Active 10 ml FLUSH ASDIRECTED PRN Sodium Chloride 0.9% [Saline Flush] Med 03/11/20 14:05 Active 2.5 ml FLUSH ASDIRECTED PRN Terbutaline [Brethine] Med 03/11/20 14:09 Active 0.25 mg SUBCUT ASDIRECTED PRN Tranexamic Acid [Cyklokapron] 1,000 mg Med 03/11/20 14:05 Active Sodium Chloride 0.9% [Normal Saline] 100 ml IV ONETIME Water For Irrigation,Sterile [Sterile Water for Med 03/11/20 14:05 Active Irrigation] 1,000 ml IRR ASDIRECTED PRN miSOPROStoL [Cytotec] Med 03/11/20 14:05 Active 200 mcg PO ONETIME PRN Scalp Electrode [WOMSER] Per Unit Routine Oth 03/11/20 14:06 Ordered Medication Administration Instruction [OM.PC] Q3H Oth 03/11/20 14:15 Ordered Peripheral IV Insertion Adult [OM.PC] Routine Oth 03/11/20 14:06 Ordered Resuscitation Status Routine Resus Stat 03/11/20 14:05 Ordered Medication Orders Butorphanol Tartrate (Stadol) 1 mg IVPUSH Q1H PRN PRN Reason: Pain Carboprost Tromethamine (Hemabate Ds) 250 mcg IM ASDIRECTED PRN PRN Reason: Post Hemorrhage Oxytocin/Sodium Chloride (Oxytocin 30 Unit/500 Ml-Ns) 30 unit in 500 mls @ 500 mls/hr IV TITRATE LYUBOV Tranexamic Acid 1,000 mg/ (Sodium Chloride) 110 mls @ 660 mls/hr IV ONETIME PRN PRN Reason: Bleeding Lactated Ringer's (Ringers, Lactated) 1,000 mls @ 150 mls/hr IV ASDIRECTED LYUBOV Oxytocin/Sodium Chloride (Oxytocin 30 Unit/500 Ml-Ns) 30 unit in 500 mls @ 2 mls/hr IV TITRATE LYUBOV; Protocol Lidocaine HCl (Xylocaine 1%) 50 ml INJECT ONETIME PRN PRN Reason: Laceration repair Methylergonovine Maleate (Methergine) 0.2 mg IM ASDIRECTED PRN PRN Reason: Post Hemorrhage Misoprostol (Cytotec) 200 mcg PO ONETIME PRN PRN Reason: Post Hemorrhage Nalbuphine HCl (Nubain) 10 mg IVPUSH Q1H PRN PRN Reason: Pain (severe 7-10) Sodium Chloride (Saline Flush) 10 ml FLUSH ASDIRECTED PRN PRN Reason: Keep Vein Open Sodium Chloride (Saline Flush) 2.5 ml FLUSH ASDIRECTED PRN PRN Reason: Keep Vein Open Sodium Chloride (Normal Saline) 10 ml IV ASDIRECTED PRN PRN Reason: IV Use Sterile Water (Sterile Water For Irrigation) 1,000 ml IRR ASDIRECTED PRN PRN Reason: delivery Terbutaline Sulfate (Brethine) 0.25 mg SUBCUT ASDIRECTED PRN PRN Reason: Tacysystole Assessment/Plan Comment:: Admit A: presenting at 38 3/7 weeks with grossly ruptured membranes; reports SROM clear at 0545 today. Denies regular uterine contractions at this time; uterine irritability noted on strip. O+, Rubella-immune, GBS negative. SVE per nurse report: 5cm/70%/-3. P: Admit. Pitocin to IVF. Anticipate . Epidural PRN. Dr. Dunbar updated.
[2020-03-11] MEDS: Lactated Ringers 1,000 ML IV SCH ×2 (15:11→17:45)
[2020-03-11] MEDS ORDERED: Ropivacaine HCl/PF 100 ML ONE (17:45)
[2020-03-11] MEDS ORDERED: fentaNYL 100 MCG/2 ML SDV ONE (17:45)
--- NOTE | 2020-03-11 18:09 | PCM.PREANE ---
Preanesthetic Assessment - Anesthesia/Transfusion/Family Hx Anesthesia History: Prior Anesthesia Without Reaction Family History of Anesthesia Reaction: No Transfusion History: No Prior Transfusion(s) - Physical Assessment NPO Status Date: 03/11/20 NPO Status Time: 09:00 Height: 1.85 m Weight: 93.44 kg ASA Class: 2 - Lab Values: Laboratory Last Values WBC 8.42 K/uL (4.0-11.0) 03/11/20 14:29 RBC 3.93 M/uL (4.30-5.90) L 03/11/20 14:29 Hgb 11.8 g/dL (12.0-16.0) L 03/11/20 14:29 Hct 34.8 % (36.0-46.0) L 03/11/20 14:29 MCV 88.5 fL (80.0-98.0) 03/11/20 14:29 MCH 30.0 pg (27.0-32.0) 03/11/20 14:29 MCHC 33.9 g/dL (31.0-37.0) 03/11/20 14:29 RDW Std Deviation 44.1 fl (28.0-62.0) 03/11/20 14:29 RDW Coeff of Chandu 14 % (11.0-15.0) 03/11/20 14:29 Plt Count 184 K/uL (150-400) 03/11/20 14:29 MPV 11.70 fL (7.40-12.00) 03/11/20 14:29 Nucleated RBC % 0.0 /100WBC 03/11/20 14:29 Nucleated RBCs # 0 K/uL 03/11/20 14:29 COVID-19 (SHAYY) NEGATIVE (NEGATIVE) 03/11/20 14:29 Blood Type O POSITIVE 03/11/20 14:29 Antibody Screen NEGATIVE 03/11/20 14:29 - Allergies Allergies/Adverse Reactions: Allergies Allergy/AdvReac Type Severity Reaction Status Date / Time No Known Allergies Allergy Verified 12/21/16 22:04 - Acknowledgements Anesthesia Type Planned: Epidural Pt an Appropriate Candidate for the Planned Anesthesia: Yes Alternatives and Risks of Anesthesia Discussed w Pt/Guardian: Yes Pt/Guardian Understands and Agrees with Anesthesia Plan: Yes PreAnesthesia Questionnaire HEENT History: Reports: None Cardiovascular History: Reports: None Respiratory History: Reports: None Gastrointestinal History: Reports: None Genitourinary History: Reports: None 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 [No Known Home Meds] 12/21/16 [History] - CURRENT (IN HOUSE) MEDS Current Meds: Current Medications Butorphanol Tartrate (Stadol) 1 mg IVPUSH Q1H PRN PRN Reason: Pain Carboprost Tromethamine (Hemabate Ds) 250 mcg IM ASDIRECTED PRN PRN Reason: Post Hemorrhage Oxytocin/Sodium Chloride (Oxytocin 30 Unit/500 Ml-Ns) 30 unit in 500 mls @ 500 mls/hr IV TITRATE LYUBOV Tranexamic Acid 1,000 mg/ (Sodium Chloride) 110 mls @ 660 mls/hr IV ONETIME PRN PRN Reason: Bleeding Lactated Ringer's (Ringers, Lactated) 1,000 mls @ 150 mls/hr IV ASDIRECTED LYUBOV Last Admin: 03/11/20 17:45 Dose: 999 mls/hr Documented by: Oxytocin/Sodium Chloride (Oxytocin 30 Unit/500 Ml-Ns) 30 unit in 500 mls @ 2 mls/hr IV TITRATE LYUBOV; Protocol Last Admin: 03/11/20 16:17 Dose: 2 munits/min, 2 mls/hr Documented by: Lidocaine HCl (Xylocaine 1%) 50 ml INJECT ONETIME PRN PRN Reason: Laceration repair Methylergonovine Maleate (Methergine) 0.2 mg IM ASDIRECTED PRN PRN Reason: Post Hemorrhage Misoprostol (Cytotec) 200 mcg PO ONETIME PRN PRN Reason: Post Hemorrhage Nalbuphine HCl (Nubain) 10 mg IVPUSH Q1H PRN PRN Reason: Pain (severe 7-10) Sodium Chloride (Saline Flush) 10 ml FLUSH ASDIRECTED PRN PRN Reason: Keep Vein Open Sodium Chloride (Saline Flush) 2.5 ml FLUSH ASDIRECTED PRN PRN Reason: Keep Vein Open Sodium Chloride (Normal Saline) 10 ml IV ASDIRECTED PRN PRN Reason: IV Use Sterile Water (Sterile Water For Irrigation) 1,000 ml IRR ASDIRECTED PRN PRN Reason: delivery Terbutaline Sulfate (Brethine) 0.25 mg SUBCUT ASDIRECTED PRN PRN Reason: Tacysystole Discontinued Medications Fentanyl (Sublimaze) Confirm Administered Dose 100 mcg .ROUTE .STK-MED ONE Stop: 03/11/20 17:46 Ropivacaine (Naropin 0.2%) Confirm Administered Dose 100 mls @ as directed .ROUTE .[employer]-MED ONE Stop: 03/11/20 17:46
--- NOTE | 2020-03-11 18:12 | PCM.PRNOTE ---
- Free Text/Narrative Note: Anes Note Patient requests epidural fo L&D. Sitting position, level L3-L4 midline approach. Sterile technique. Chloraprep scrub to lumbar area. Sterile fenestrated drape applied. Epidural space easily acieved using KATIE technique. KATIE at 3 cm. Cath threaded 5 cm with ease. Cath secured at skin at 11 cm using sterile clear adhesive dressing. 1755 Test 3 cc 1.5% lido with epi negative. 1759 Load 10 cc 0.2% ropivicaine with 1 mcg cc fentanyl in slow divided doses. 1805 Pump started with 90 cc same solution. Rate is 8 cc hr with 6 cc q 20 min prn bolus. Eli well. 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
--- NOTE | 2020-03-11 21:49 | PCM.DEL ---
L & D Note - General Info Date of Service: 03/11/20 Mother's Due Date: 03/22/20 - Delivery Note Labor: Spontaneous, Augmented by Oxytocin Delivery Outcome: Livebirth Infant Delivery Method: Spontaneous Vaginal Delivery-Single Presentation: Vertex Nuchal Cord: None Anesthesia Type: Epidural Episiotomy Type: None Laceration: 1st Degree Suture type: Vicryl Suture size: 3-0 Placenta: Intact, Spontaneous Cord: 3 Vessels Score 1 min: 9 Score 5 min: 9 Second Stage Interventions: Reports: Second Nurse Assessed Progress of Descent, Second Nurse Reviewed Contraction Pattern, Second Nurse Reviewed Heart Tones, Encouragement Given, Pushing Effectively, Pushing, Pulls Own Legs Back Delivery Comments (Free Text/Narrative):: viable male; epidural for pain; head delivered with good pushing; shoulders and body followed after; no nuchal; baby to mom's abdomen [id number] for assessment; APGARs 9/9; weight: 9 lbs 2 oz; placenta delivered grossly intact, shea; 3VC; EBL 300 mL; pitocin to IVF; 1st degree perineal laceration, repaired with 3-0 vicryl; mom and baby left in stable condition with nurse at bedside for assessment - General Info Date of Service: 03/11/20 Admission Dx/Problem (Free Text): Patient Status Order with Admit Dx/Problem 03/11/20 14:06 Patient Status [ADT] Routine Admission Diagnosis/Problem Admission Diagnosis/Problem 03/11/20 14:28 presenting at 38 3/7 weeks with grossly ruptured membranes; reports SROM clear at 0545 today. Denies regular uterine contractions at this time; uterine irritability noted on strip. O+, Rubella-immune, GBS negative. SVE per nurse report: 5cm/70%/-3. 03/11/20 14:36 Functional Status: Reports: Pain Controlled - Review of Systems General: Reports: No Symptoms HEENT: Reports: No Symptoms Pulmonary: Reports: No Symptoms Cardiovascular: Reports: No Symptoms Gastrointestinal: Reports: No Symptoms Genitourinary: Reports: No Symptoms Musculoskeletal: Reports: No Symptoms Skin: Reports: No Symptoms Neurological: Reports: No Symptoms Psychiatric: Reports: No Symptoms - Patient Data Weight - Most Recent: 206 lb Lab Results Last 24 Hours: Laboratory Results - last 24 hr 0903/11/20 03/11/20 Range/Units 14:29 14:29 14:29 WBC 8.42 (4.0-11.0) K/uL RBC 3.93 L (4.30-5.90) M/uL Hgb 11.8 L (12.0-16.0) g/dL Hct 34.8 L (36.0-46.0) % MCV 88.5 (80.0-98.0) fL MCH 30.0 (27.0-32.0) pg MCHC 33.9 (31.0-37.0) g/dL RDW Std Deviation 44.1 (28.0-62.0) fl RDW Coeff of Chandu 14 (11.0-15.0) % Plt Count 184 (150-400) K/uL MPV 11.70 (7.40-12.00) fL Nucleated RBC % 0.0 /100WBC Nucleated RBCs # 0 K/uL COVID-19 (SHAYY) NEGATIVE (NEGATIVE) Blood Type O POSITIVE Antibody Screen NEGATIVE Med Orders - Current: Current Medications Butorphanol Tartrate (Stadol) 1 mg IVPUSH Q1H PRN PRN Reason: Pain Carboprost Tromethamine (Hemabate Ds) 250 mcg IM ASDIRECTED PRN PRN Reason: Post Hemorrhage Oxytocin/Sodium Chloride (Oxytocin 30 Unit/500 Ml-Ns) 30 unit in 500 mls @ 500 mls/hr IV TITRATE LYUBOV Tranexamic Acid 1,000 mg/ (Sodium Chloride) 110 mls @ 660 mls/hr IV ONETIME PRN PRN Reason: Bleeding Lactated Ringer's (Ringers, Lactated) 1,000 mls @ 150 mls/hr IV ASDIRECTED LYUBOV Last Admin: 03/11/20 17:45 Dose: 999 mls/hr Documented by: Oxytocin/Sodium Chloride (Oxytocin 30 Unit/500 Ml-Ns) 30 unit in 500 mls @ 2 mls/hr IV TITRATE LYUBOV; Protocol Last Titration: 03/11/20 17:45 Dose: 4 munits/min, 4 mls/hr Documented by: Lidocaine HCl (Xylocaine 1%) 50 ml INJECT ONETIME PRN PRN Reason: Laceration repair Methylergonovine Maleate (Methergine) 0.2 mg IM ASDIRECTED PRN PRN Reason: Post Hemorrhage Misoprostol (Cytotec) 200 mcg PO ONETIME PRN PRN Reason: Post Hemorrhage Nalbuphine HCl (Nubain) 10 mg IVPUSH Q1H PRN PRN Reason: Pain (severe 7-10) Sodium Chloride (Saline Flush) 10 ml FLUSH ASDIRECTED PRN PRN Reason: Keep Vein Open Sodium Chloride (Saline Flush) 2.5 ml FLUSH ASDIRECTED PRN PRN Reason: Keep Vein Open Sodium Chloride (Normal Saline) 10 ml IV ASDIRECTED PRN PRN Reason: IV Use Sterile Water (Sterile Water For Irrigation) 1,000 ml IRR ASDIRECTED PRN PRN Reason: delivery Terbutaline Sulfate (Brethine) 0.25 mg SUBCUT ASDIRECTED PRN PRN Reason: Tacysystole Discontinued Medications Fentanyl (Sublimaze) Confirm Administered Dose 100 mcg .ROUTE .Crispify ONE Stop: 03/11/20 17:46 Last Admin: 03/11/20 19:47 Dose: Not Given Documented by: Ropivacaine (Naropin 0.2%) Confirm Administered Dose 100 mls @ as directed .ROUTE .Crispify ONE Stop: 03/11/20 17:46 Last Admin: 03/11/20 19:47 Dose: Not Given Documented by: - Exam General: Alert, Oriented, Cooperative, No Acute Distress Lungs: Normal Respiratory Effort Cardiovascular: Regular Rate, Regular Rhythm GI/Abdominal Exam: Soft, Non-Tender Back Exam: Normal Inspection Extremities: Normal Inspection, Non-Tender, No Pedal Edema, Normal Capillary Ref ill Skin: Warm, Dry, Intact Wound/Incisions: Healing Well Neurological: No New Focal Deficit, Normal Speech, Normal Tone Psy/Mental Status: Alert, Normal Affect, Normal Mood - Problem List & Annotations (1) Supervision of normal IUP (intrauterine ) in multigravida SNOMED Code(s): 738561225, 361992720, 109781486 Code(s): Z34.80 - ENCOUNTER FOR SUPRVSN OF NORMAL , UNSP TRIMESTER Status: Acute Priority: High Current Visit: Yes Qualifiers: Trimester: third trimester Qualified Code(s): Z34.83 - Encounter for supervision of other normal , third trimester (2) (spontaneous vaginal delivery) SNOMED Code(s): 320830112 Code(s): O80 - ENCOUNTER FOR FULL-TERM UNCOMPLICATED DELIVERY Status: Acute Priority: High Current Visit: Yes - Problem List Review Problem List Initiated/Reviewed/Updated: Yes - My Orders Last 24 Hours: My Active Orders 03/11/20 14:05 Butorphanol [Stadol] 1 mg IVPUSH Q1H PRN Carboprost Tromethamine [Hemabate DS] 250 mcg IM ASDIRECTED PRN Lidocaine 1% [Xylocaine 1%] 50 ml INJECT ONETIME PRN Methylergonovine [Methergine] 0.2 mg IM ASDIRECTED PRN Nalbuphine [Nubain] 10 mg IVPUSH Q1H PRN Sodium Chloride 0.9% [Normal Saline] 10 ml IV ASDIRECTED PRN Sodium Chloride 0.9% [Saline Flush] 10 ml FLUSH ASDIRECTED PRN Sodium Chloride 0.9% [Saline Flush] 2.5 ml FLUSH ASDIRECTED PRN Tranexamic Acid [Cyklokapron] 1,000 mg Sodium Chloride 0.9% [Normal Saline] 100 ml IV ONETIME Water For Irrigation,Sterile [Sterile Water for Irrigation] 1,000 ml IRR ASDIRECTED PRN miSOPROStoL [Cytotec] 200 mcg PO ONETIME PRN Resuscitation Status Routine 03/11/20 14:06 Patient Status [ADT] Routine Heart Tones [RC] CONTINUOUS Non Stress Test [RC] PER UNIT ROUTINE May Shower [RC] ASDIRECTED Notify Provider [RC] PRN Up ad [place] [RC] ASDIRECTED Vaginal Exam [RC] PRN Vital Signs [RC] PER UNIT ROUTINE Scalp Electrode [WOMSER] Per Unit Routine Peripheral IV Insertion Adult [OM.PC] Routine 03/11/20 14:09 Communication Order [RC] ASDIRECTED Notify Provider [RC] PRN Notify Provider [RC] PRN Notify Provider [RC] STAT Terbutaline [Brethine] 0.25 mg SUBCUT ASDIRECTED PRN 03/11/20 14:15 Lactated Ringers [Ringers, Lactated] 1,000 ml IV ASDIRECTED Oxytocin/0.9 % Sodium Chloride [Oxytocin 30 Unit/500 ML-NS] 30 unit in 500 ml IV TITRATE Oxytocin/0.9 % Sodium Chloride [Oxytocin 30 Unit/500 ML-NS] 30 unit in 500 ml IV TITRATE Medication Administration Instruction [OM.PC] Q3H 03/11/20 14:29 RPR (SYPHILIS SERO) W/ RFLX [REF] Routine - Plan Plan:: Admit A: presenting at 38 3/7 weeks with grossly ruptured membranes; reports SROM clear at 0545 today. Denies regular uterine contractions at this time; uterine irritability noted on strip. O+, Rubella-immune, GBS negative. SVE per nurse report: 5cm/70%/-3. P: Admit. Pitocin to IVF. Anticipate . Epidural PRN. Dr. Dunbar updated. Delivery A: viable male; epidural for pain; APGARs 9/9; weight: 9 lbs 2 oz; placenta delivered grossly intact, shea; 3VC; EBL 300 mL; pitocin to IVF; 1st degree perineal laceration, repaired with 3-0 vicryl; mom and baby left in stable condition with nurse at bedside for assessment P: Routine plan of care; Dr. Dunbar updated.
[2020-03-11] MEDS ORDERED: oxyCODONE 5 MG Tab PO PRN (21:50)
[2020-03-11] MEDS ORDERED: Lanolin 100% Cream 7 GM Tube TOP PRN (21:50)
[2020-03-11] MEDS ORDERED: Ibuprofen 400 MG Tab PO PRN (21:50)
[2020-03-11] MEDS ORDERED: Docusate Sodium 100 MG Cap PO PRN (21:50)
[2020-03-11] MEDS ORDERED: Bisacodyl 10 MG Supp RECTAL PRN (21:50)
[2020-03-11] MEDS ORDERED: Acetaminophen 500 MG Tab PO PRN (21:50)
[2020-03-12] MEDS: Benzocaine/Menthol 20%-0.5% Spray 78 GM Cannister TOP PRN (00:28)
[2020-03-12] MEDS: Witch Hazel Medicated Pads 40/Jar TOP PRN (00:28)
[2020-03-12] MEDS: Ibuprofen 800 MG Tab PO PRN ×3 (00:59→22:30)
--- NOTE | 2020-03-12 08:24 | OR ---
SURGEON: Rito Dunbar MD DATE OF PROCEDURE: 03/11/2020 Ms. Romero is 34. She is para 3-0-2-3. She is admitted for elective induction. She is 39 weeks. The patient is induced by Pitocin and she responded very well. She had epidural anesthesia for labor analgesia at 6 cm. She continued with Pitocin. The patient became complete-complete and she was pushing in excess of an hour and half, and I was consulted for possible vacuum extraction. At the time of my arrival, the patient's vital signs were stable. heart rate was category I. Vaginal examination revealed that the patient is complete-complete, vertex, 0 to +1 station at LOT, and she was amenable and accessible to vacuum extraction. After explaining the vacuum extraction and obtaining consent from the patient, kiwi vacuum extraction was performed. With the patient pushing and one pull, I was able to rotate the head to OA position and accomplish a vaginal delivery of the head and then Zarina Sreekanth finished the rest of the delivery. Fetus cried immediately. score reported to be 8 and 9. The placenta delivered spontaneously complete and intact. There was no labial, vaginal, or perineal laceration. Estimated blood loss 350 to 400 mL. heart rate was category 1 through the entire process of labor and delivery. There was no complication in the labor process and in the delivery. MIKALA / WIL /[id number]
--- NOTE | 2020-03-12 08:31 | PCM.DCSUM1 ---
Discharge Summary - Hospital Course Free Text/Narrative:: Discharge home with baby. Follow up in the clinic in six weeks for routine visit. Diagnosis: Stroke: No Modified [place] Scale: No Symptoms at All Modified [place] Scale Score: 0 - Discharge Data Discharge Date: 03/12/20 Discharge Disposition: Home, Self-Care 01 Condition: Good - Referral to Home Health Primary Care Physician: PCP None - Discharge Diagnosis/Problem(s) (1) Supervision of normal IUP (intrauterine ) in multigravida SNOMED Code(s): 712643896, 013307970, 095887423 ICD Code: Z34.80 - ENCOUNTER FOR SUPRVSN OF NORMAL , UNSP TRIMESTER Status: Acute Priority: High Current Visit: Yes Qualifiers: Trimester: third trimester Qualified Code(s): Z34.83 - Encounter for supervision of other normal , third trimester (2) (spontaneous vaginal delivery) SNOMED Code(s): 017272477 ICD Code: O80 - ENCOUNTER FOR FULL-TERM UNCOMPLICATED DELIVERY Status: Acute Priority: High Current Visit: Yes - Patient Instructions Diet: Regular Diet as Tolerated, Drink 8-10+ Glasses/Day Activity: As Tolerated, No Strenuous Activities, Rest and Relax Today Driving: May Drive Today Showering/Bathing: May Shower Notify Provider of: Fever, Increased Pain, Swelling and Redness, Drainage, Nausea and/or Vomiting - Discharge Plan *PRESCRIPTION DRUG MONITORING PROGRAM REVIEWED*: Not Applicable *COPY OF PRESCRIPTION DRUG MONITORING REPORT IN PATIENT SCOTT: Not Applicable Prescriptions/Med Rec: Ibuprofen [Motrin] 800 mg PO Q6H PRN #90 tablet PRN Reason: Pain Home Medications: Home Meds Ibuprofen [Motrin] 800 mg PO Q6H PRN #90 tablet 03/12/20 [Rx] Oxygen Therapy Mode: Room Air - Discharge Summary/Plan Comment DC Time >30 min.: Yes - General Info Date of Service: 03/12/20 Admission Dx/Problem (Free Text: Patient Status Order with Admit Dx/Problem 03/11/20 14:06 Patient Status [ADT] Routine Admission Diagnosis/Problem Admission Diagnosis/Problem 03/11/20 14:28 presenting at 38 3/7 weeks with grossly ruptured membranes; reports SROM clear at 0545 today. Denies regular uterine contractions at this time; uterine irritability noted on strip. O+, Rubella-immune, GBS negative. SVE per nurse report: 5cm/70%/-3. 03/11/20 14:36 Functional Status: Reports: Pain Controlled, Tolerating Diet, Ambulating, Urinating - Review of Systems General: Reports: No Symptoms HEENT: Reports: No Symptoms Pulmonary: Reports: No Symptoms Cardiovascular: Reports: No Symptoms Gastrointestinal: Reports: No Symptoms Genitourinary: Reports: No Symptoms Musculoskeletal: Reports: No Symptoms Skin: Reports: No Symptoms Neurological: Reports: No Symptoms Psychiatric: Reports: No Symptoms - Patient Data Vitals - Most Recent: Last Vital Signs Temp 97.3 F 03/12/20 05:00 Pulse 66 03/12/20 05:00 Resp 16 03/12/20 05:00 BP 117/66 03/12/20 05:00 Pulse Ox Weight - Most Recent: 206 lb Lab Results - Last 24 hrs: Laboratory Results - last 24 hr 03/11/20 03/11/20 03/11/20 Range/Units 14:29 14:29 14:29 WBC 8.42 (4.0-11.0) K/uL RBC 3.93 L (4.30-5.90) M/uL Hgb 11.8 L (12.0-16.0) g/dL Hct 34.8 L (36.0-46.0) % MCV 88.5 (80.0-98.0) fL MCH 30.0 (27.0-32.0) pg MCHC 33.9 (31.0-37.0) g/dL RDW Std Deviation 44.1 (28.0-62.0) fl RDW Coeff of Chandu 14 (11.0-15.0) % Plt Count 184 (150-400) K/uL MPV 11.70 (7.40-12.00) fL Nucleated RBC % 0.0 /100WBC Nucleated RBCs # 0 K/uL COVID-19 (SHAYY) NEGATIVE (NEGATIVE) Blood Type O POSITIVE Antibody Screen NEGATIVE 03/12/20 Range/Units 05:13 WBC (4.0-11.0) K/uL RBC (4.30-5.90) M/uL Hgb 10.8 L (12.0-16.0) g/dL Hct 33.2 L (36.0-46.0) % MCV (80.0-98.0) fL MCH (27.0-32.0) pg MCHC (31.0-37.0) g/dL RDW Std Deviation (28.0-62.0) fl RDW Coeff of Chandu (11.0-15.0) % Plt Count (150-400) K/uL MPV (7.40-12.00) fL Nucleated RBC % /100WBC Nucleated RBCs # K/uL COVID-19 (SHAYY) (NEGATIVE) Blood Type Antibody Screen Med Orders - Current: Current Medications Acetaminophen (Tylenol Extra Strength) 500 mg PO Q4H PRN PRN Reason: Pain Acetaminophen (Tylenol Extra Strength) 1,000 mg PO Q4H PRN PRN Reason: Pain Benzocaine/Menthol (Dermoplast Pain Relief 20%-0.5% Cecil) 78 gm TOP ASDIRECTED PRN PRN Reason: Perineal Comfort Measure Last Admin: 03/12/20 00:28 Dose: 1 canister Documented by: Bisacodyl (Dulcolax) 10 mg RECTAL ONETIME PRN PRN Reason: Constipation Docusate Sodium (Colace) 100 mg PO BID PRN PRN Reason: Constipation Emollient Ointment (Lansinoh Hpa) 0 gm TOP ASDIRECTED PRN PRN Reason: Sore Nipples Ibuprofen (Motrin) 400 mg PO Q4H PRN PRN Reason: Pain Ibuprofen (Motrin) 800 mg PO Q6H PRN PRN Reason: Pain Last Admin: 03/12/20 00:59 Dose: 800 mg Documented by: Oxycodone HCl (Oxycodone) 5 mg PO Q2H PRN PRN Reason: Pain Witch Adelina (Tucks) 1 pad TOP ASDIRECTED PRN PRN Reason: comfort care Last Admin: 03/12/20 00:28 Dose: 1 container Documented by: Discontinued Medications Butorphanol Tartrate (Stadol) 1 mg IVPUSH Q1H PRN PRN Reason: Pain Carboprost Tromethamine (Hemabate Ds) 250 mcg IM ASDIRECTED PRN PRN Reason: Post Hemorrhage Fentanyl (Sublimaze) Confirm Administered Dose 100 mcg .ROUTE .STK-MED ONE Stop: 03/11/20 17:46 Last Admin: 03/11/20 19:47 Dose: Not Given Documented by: Oxytocin/Sodium Chloride (Oxytocin 30 Unit/500 Ml-Ns) 30 unit in 500 mls @ 500 mls/hr IV TITRATE LYUBOV Tranexamic Acid 1,000 mg/ (Sodium Chloride) 110 mls @ 660 mls/hr IV ONETIME PRN PRN Reason: Bleeding Lactated Ringer's (Ringers, Lactated) 1,000 mls @ 150 mls/hr IV ASDIRECTED LYUBOV Last Admin: 03/11/20 17:45 Dose: 999 mls/hr Documented by: Oxytocin/Sodium Chloride (Oxytocin 30 Unit/500 Ml-Ns) 30 unit in 500 mls @ 2 mls/hr IV TITRATE LYUBOV; Protocol Last Titration: 03/11/20 20:59 Dose: 500 munits/min, 500 mls/hr Documented by: Ropivacaine (Naropin 0.2%) Confirm Administered Dose 100 mls @ as directed .ROUTE .[facility]-MED ONE Stop: 03/11/20 17:46 Last Admin: 03/11/20 19:47 Dose: Not Given Documented by: Lidocaine HCl (Xylocaine 1%) 50 ml INJECT ONETIME PRN PRN Reason: Laceration repair Methylergonovine Maleate (Methergine) 0.2 mg IM ASDIRECTED PRN PRN Reason: Post Hemorrhage Misoprostol (Cytotec) 200 mcg PO ONETIME PRN PRN Reason: Post Hemorrhage Nalbuphine HCl (Nubain) 10 mg IVPUSH Q1H PRN PRN Reason: Pain (severe 7-10) Sodium Chloride (Saline Flush) 10 ml FLUSH ASDIRECTED PRN PRN Reason: Keep Vein Open Sodium Chloride (Saline Flush) 2.5 ml FLUSH ASDIRECTED PRN PRN Reason: Keep Vein Open Sodium Chloride (Normal Saline) 10 ml IV ASDIRECTED PRN PRN Reason: IV Use Sterile Water (Sterile Water For Irrigation) 1,000 ml IRR ASDIRECTED PRN PRN Reason: delivery Terbutaline Sulfate (Brethine) 0.25 mg SUBCUT ASDIRECTED PRN PRN Reason: Tacysystole - Exam General: Reports: Alert, Oriented, Cooperative, No Acute Distress Lungs: Reports: Normal Respiratory Effort Cardiovascular: Reports: Regular Rate, Regular Rhythm GI/Abdominal Exam: Soft, Non-Tender (Female) Exam: Deferred Rectal (Female) Exam: Deferred Back Exam: Reports: Normal Inspection, Full Range of Motion Extremities: Normal Inspection, Normal Range of Motion, Non-Tender, Normal Capillary Refill Skin: Reports: Warm, Dry, Intact Wound/Incisions: Reports: Healing Well Neurological: Reports: No New Focal Deficit, Normal Speech, Normal Tone, Strength Equal Bilateral, Sensation Intact Psy/Mental Status: Reports: Alert, Normal Affect, Normal Mood
--- NOTE | 2020-03-12 08:41 | PCM48HPAN ---
Post Anesthesia Note - EVALUATION WITHIN 48HRS OF ANESTHETIC Vital Signs in Normal Range: Yes Patient Participated in Evaluation: Yes Respiratory Function Stable: Yes Airway Patent: Yes Cardiovascular Function Stable: Yes Hydration Status Stable: Yes Pain Control Satisfactory: Yes Nausea and Vomiting Control Satisfactory: Yes Mental Status Recovered: Yes Vital Signs: Last Vital Signs Temp 36.1 C 03/12/20 07:35 Pulse 60 03/12/20 07:35 Resp 18 03/12/20 07:35 BP 106/57 L 03/12/20 07:35 Pulse Ox 97 03/12/20 07:35 - COMMENTS/OBSERVATIONS Free Text/Narrative:: The patient has no complaints at this time. There were no apparent anesthetic complications at this time.
[2020-03-12] MEDS: Acetaminophen 500 MG Tab PO PRN ×2 (15:30→22:25)
[2020-03-13] MEDS: Witch Hazel Medicated Pads 40/Jar TOP PRN (00:11)
--- NOTE | 2020-03-13 08:24 | PCM.DCSUM1 ---
Discharge Summary - Hospital Course Free Text/Narrative:: Mari is a 34 yo PPD2 S/P uncomplicated to term NBM. O pos, RI, GBS neg. Patient is exclusively well, resting comfortably in bed with in arms, does not desire support at this time. Patient reports she is eating, voiding, ambulating independently and without difficulty. Patient denies any problems or concerns at this time except mild-moderate intermittent uterine cramping and perineal swelling relieved with Tylenol and Ibuprofen. Patient reports small to moderate vaginal bleeding with no clots. Patient verbalizes her readiness to be discharged home today. Diagnosis: Stroke: No Modified [place] Scale: No Symptoms at All Modified Lona Scale Score: 0 - Discharge Data Discharge Date: 03/13/20 Discharge Disposition: Home, Self-Care 01 Condition: Good - Referral to Home Health Primary Care Physician: PCP None - Patient Instructions Diet: Usual Diet as Tolerated, Regular Diet as Tolerated, Drink 8-10+ Glasses/Day Activity: As Tolerated, No Strenuous Activities Driving: May Drive Today Driving, Other: Sitz bath for perineal comfort Showering/Bathing: November Shower Notify Provider of: Fever, Increased Pain, Swelling and Redness, Drainage, Nausea and/or Vomiting - Discharge Plan *PRESCRIPTION DRUG MONITORING PROGRAM REVIEWED*: Not Applicable *COPY OF PRESCRIPTION DRUG MONITORING REPORT IN PATIENT SCOTT: Not Applicable Prescriptions/Med Rec: Ibuprofen [Motrin] 800 mg PO Q6H PRN #90 tablet PRN Reason: Pain Home Medications: Home Meds Ibuprofen [Motrin] 800 mg PO Q6H PRN #90 tablet 03/12/20 [Rx] Oxygen Therapy Mode: Room Air Patient Handouts: Vaginal Delivery, Vaginal Laceration, Care of a Perineal Tear Referrals: [facility] [Ordering Only Provider] - Zarina Stack CNM, [employer] [Mid-] - 04/23/20 3:00 pm - Discharge Summary/Plan Comment DC Time >30 min.: Yes (May D/C home today. RTO in 6 weeks for PPV) - General Info Date of Service: 03/13/20 Admission Dx/Problem (Free Text: Patient Status Order with Admit Dx/Problem 03/11/20 14:06 Patient Status [ADT] Routine Admission Diagnosis/Problem Admission Diagnosis/Problem 03/11/20 14:28 presenting at 38 3/7 weeks with grossly ruptured membranes; reports SROM clear at 0545 today. Denies regular uterine contractions at this time; uterine irritability noted on strip. O+, Rubella-immune, GBS negative. SVE per nurse report: 5cm/70%/-3. 03/11/20 14:36 Functional Status: Reports: Pain Controlled - Review of Systems General: Reports: No Symptoms HEENT: Reports: No Symptoms Pulmonary: Reports: No Symptoms Cardiovascular: Reports: No Symptoms Gastrointestinal: Reports: No Symptoms Genitourinary: Reports: No Symptoms, Pain (Mild uterine cramping and perineal discomfort) Musculoskeletal: Reports: No Symptoms Skin: Reports: No Symptoms Neurological: Reports: No Symptoms Psychiatric: Reports: No Symptoms - Patient Data Vitals - Most Recent: Last Vital Signs Temp 99.0 F 03/13/20 04:00 Pulse 74 03/13/20 04:00 Resp 16 03/13/20 04:00 BP 114/75 03/13/20 04:00 Pulse Ox 98 03/12/20 19:45 Weight - Most Recent: 206 lb Med Orders - Current: Current Medications Acetaminophen (Tylenol Extra Strength) 500 mg PO Q4H PRN PRN Reason: Pain Acetaminophen (Tylenol Extra Strength) 1,000 mg PO Q4H PRN PRN Reason: Pain Last Admin: 03/12/20 22:25 Dose: 1,000 mg Documented by: Benzocaine/Menthol (Dermoplast Pain Relief 20%-0.5% [place]) 78 gm TOP ASDIRECTED PRN PRN Reason: Perineal Comfort Measure Last Admin: 03/12/20 00:28 Dose: 1 canister Documented by: Bisacodyl (Dulcolax) 10 mg RECTAL ONETIME PRN PRN Reason: Constipation Docusate Sodium (Colace) 100 mg PO BID PRN PRN Reason: Constipation Emollient Ointment (Lansinoh Hpa) 0 gm TOP ASDIRECTED PRN PRN Reason: Sore Nipples Ibuprofen (Motrin) 400 mg PO Q4H PRN PRN Reason: Pain Ibuprofen (Motrin) 800 mg PO Q6H PRN PRN Reason: Pain Last Admin: 03/12/20 22:30 Dose: 800 mg Documented by: Oxycodone HCl (Oxycodone) 5 mg PO Q2H PRN PRN Reason: Pain Witch Adelina (Tucks) 1 pad TOP ASDIRECTED PRN PRN Reason: comfort care Last Admin: 03/13/20 00:11 Dose: 1 container Documented by: Discontinued Medications Butorphanol Tartrate (Stadol) 1 mg IVPUSH Q1H PRN PRN Reason: Pain Carboprost Tromethamine (Hemabate Ds) 250 mcg IM ASDIRECTED PRN PRN Reason: Post Hemorrhage Fentanyl (Sublimaze) Confirm Administered Dose 100 mcg .ROUTE .[employer] [facility] ONE Stop: 03/11/20 17:46 Last Admin: 03/11/20 19:47 Dose: Not Given Documented by: Oxytocin/Sodium Chloride (Oxytocin 30 Unit/500 Ml-Ns) 30 unit in 500 mls @ 500 mls/hr IV TITRATE LYUBOV Tranexamic Acid 1,000 mg/ (Sodium Chloride) 110 mls @ 660 mls/hr IV ONETIME PRN PRN Reason: Bleeding Lactated Ringer's (Ringers, Lactated) 1,000 mls @ 150 mls/hr IV ASDIRECTED LYUBOV Last Admin: 03/11/20 17:45 Dose: 999 mls/hr Documented by: Oxytocin/Sodium Chloride (Oxytocin 30 Unit/500 Ml-Ns) 30 unit in 500 mls @ 2 mls/hr IV TITRATE LYUBOV; Protocol Last Titration: 03/11/20 20:59 Dose: 500 munits/min, 500 mls/hr Documented by: Ropivacaine (Naropin 0.2%) Confirm Administered Dose 100 mls @ as directed .ROUTE .[employer] ONE Stop: 03/11/20 17:46 Last Admin: 03/11/20 19:47 Dose: Not Given Documented by: Lidocaine HCl (Xylocaine 1%) 50 ml INJECT ONETIME PRN PRN Reason: Laceration repair Methylergonovine Maleate (Methergine) 0.2 mg IM ASDIRECTED PRN PRN Reason: Post Hemorrhage Misoprostol (Cytotec) 200 mcg PO ONETIME PRN PRN Reason: Post Hemorrhage Nalbuphine HCl (Nubain) 10 mg IVPUSH Q1H PRN PRN Reason: Pain (severe 7-10) Sodium Chloride (Saline Flush) 10 ml FLUSH ASDIRECTED PRN PRN Reason: Keep Vein Open Sodium Chloride (Saline Flush) 2.5 ml FLUSH ASDIRECTED PRN PRN Reason: Keep Vein Open Sodium Chloride (Normal Saline) 10 ml IV ASDIRECTED PRN PRN Reason: IV Use Sterile Water (Sterile Water For Irrigation) 1,000 ml IRR ASDIRECTED PRN PRN Reason: delivery Terbutaline Sulfate (Brethine) 0.25 mg SUBCUT ASDIRECTED PRN PRN Reason: Tacysystole - Exam General: Reports: Alert, Oriented, Cooperative, No Acute Distress HEENT: Reports: Pupils Equal, Pupils Reactive, Mucous Membr. Moist/[place] Neck: Reports: Supple Lungs: Reports: Clear to Auscultation, Normal Respiratory Effort Cardiovascular: Reports: Regular Rate, Regular Rhythm GI/Abdominal Exam: Normal Bowel Sounds, Soft, Non-Tender, No Organomegaly, No Distention (Female) Exam: Normal External Exam, Enlarged Uterus ( uterus, firm U-2), Vaginal Bleeding (Small to medium rubra lochia, no clots) Rectal (Female) Exam: Deferred Back Exam: Reports: Normal Inspection, Full Range of Motion Extremities: Normal Inspection, Normal Range of Motion, Non-Tender, No Pedal Edema, Normal Capillary Refill Skin: Reports: Warm, Dry, Intact Wound/Incisions: Reports: No Drainage (Edematous per patient report, no drainage, hemostatic) Psy/Mental Status: Reports: Alert, Normal Affect, Normal Mood
[2020-03-13] MEDS: Ibuprofen 800 MG Tab PO PRN (09:03)
[2020-03-13] MEDS: Benzocaine/Menthol 20%-0.5% Spray 78 GM Cannister TOP PRN (09:04)
[2020-03-13 13:59] VITALS: BP 125/72; PULSE 58
== END 2020-03-13 11:45 | disposition home or self-care (01) | DRG 560 ==
LOC: MW.OBCHECK 13:44 → MW.OB 13:47 → MW.OBCHECK 14:06 → MW.OB 14:06 → OBSVTOIN 21:50 → MW.OB 03-12 01:08
PROVIDERS: ADMIT Obstetrics & Gynecology; ATTEND Obstetrics & Gynecology
PROC: 10D07Z6 Extraction of Products of Conception, Vacuum, Via Natural or Artificial Opening (ICD-10-PCS; principal; 2020-03-11)
PROC: 0HQ9XZZ Repair Perineum Skin, External Approach (ICD-10-PCS; 2020-03-11)
PROC: 3E0R3BZ Introduction of Anesthetic Agent into Spinal Canal, Percutaneous Approach (ICD-10-PCS; 2020-03-11)
PROC: 3E033VJ Introduction of Other Hormone into Peripheral Vein, Percutaneous Approach (ICD-10-PCS; 2020-03-11)
PROC: 00HU33Z Insertion of Infusion Device into Spinal Canal, Percutaneous Approach (ICD-10-PCS; 2020-03-11)
DX: O70.0 First degree perineal laceration during delivery (principal); Z3A.39 39 weeks gestation of pregnancy; Z37.0 Single live birth; Z20.828 Contact with and (suspected) exposure to other viral communicable diseases
CPT/HCPCS: 01967; 36415; 51702; 59025; 59409; 85014; 85018; 85027; 86592; 86850; 86900; 86901; A9270-GY; J2590; J7120; U0002

== ENCOUNTER 2021-02-23 09:13 | Emergency (ER) | payer BC ==
--- NOTE | 2021-02-23 11:38 | CR ---
INDICATION: Cough TECHNIQUE: Two view chest. FINDINGS: The lungs are clear. The heart, mediastinum and pulmonary vessels are of normal size. There is no evidence of pleural disease. IMPRESSION: Negative chest. Dictated by Kayli Mccabe MD @ 02/23/2021 11:36:[address] Kayli Mccabe @ Feb 23 2021 11:36AM
--- NOTE | 2021-02-23 11:59 | EDM.PDOC ---
ED HPI GENERAL MEDICAL PROBLEM - General Chief Complaint: Respiratory Problem Stated Complaint: SEVERE COUGH PAST 5-6 DAYS Time Seen by Provider: 02/23/21 10:01 Source of Information: Reports: Patient History Limitations: Reports: No Limitations - History of Present Illness INITIAL COMMENTS - FREE TEXT/NARRATIVE: HISTORY AND PHYSICAL: History of present illness: Patient is a 35-year-old female who presents emergency room today with concern of cough over the past 3 to 4 days. Patient states that she has several kids who have had the same symptoms and were placed on amoxicillin for a "upper respiratory infection". Mother states that 2 of her kids have also developed a cough and states that it is "going around the family ". Patient states that she is vaccinated for Covid but was concerned of possible COVID-19 infection and would like to know her Covid status in case she is to isolate. Patient states other than the cough, she has no other symptoms or concerns. Patient states that she is currently breast-feeding, so is cautious about what medication she is taking. Patient does state that she had a hard time sleeping last night due to the cough which kept her awake. Patient denies any other symptoms or concerns. Patient denies fever, chills, chest pain, shortness of breath. Denies headache, neck stiff ness, change in vision, syncope, or near syncope. Denies nausea, vomiting, abdominal pain, diarrhea, constipation, or dysuria. Has not noted any blood in urine or stool. Patient has been eating and drinking appropriately. Review of systems: As per history of present illness and below otherwise all systems reviewed and negative. Past medical history: As per history of present illness and as reviewed below otherwise noncontributory. Surgical history: As per history of present illness and as reviewed below otherwise noncontributory. Social history: See social history for further information Family history: As per history of present illness and as reviewed below otherwise noncontributory. Physical exam: General: Patient is alert, oriented, and in no acute distress. Patient sitting comfortably on exam table. Vitals stable and reviewed by me HEENT: Atraumatic, normocephalic, pupils equal and reactive bilaterally, negative for conjunctival pallor or scleral icterus, mucous membranes moist, TMs normal bilaterally, throat clear, neck supple, nontender, trachea midline. No drooling or trismus noted. No meningeal signs. No hot potato voice noted. Lungs: Patient does have a spasmatic dry cough on exam. Otherwise, clear to auscultation, breath sounds equal bilaterally, chest nontender. Patient speaking clearly without breathlessness, no wheezing or stridor, no accessory muscle use or respiratory distress Heart: S1S2, regular rate and rhythm without overt murmur Abdomen: Soft, nondistended, nontender. Negative for masses or hepatosplenomegaly. Negative for costovertebral tenderness. Pelvis: Stable nontender. Genitourinary: Deferred. Rectal: Deferred. Skin: Intact, warm, dry. No lesions or rashes noted. Extremities: Atraumatic, negative for cords or calf pain. Neurovascular unremarkable. Neuro: Awake, alert, oriented. Cranial nerves II through XII unremarkable. Cerebellum unremarkable. Motor and sensory unremarkable throughout. Exam nonfocal. Notes: COVID-19 is negative. Patient is requesting to leave the emergency room prior to radiology interpretation of chest x-ray. I personally have reviewed chest x- ray shows possible bronchitis otherwise clear without consolidation and no acute cardiopulmonary findings. Will follow official radiology interpretation. Rest x-ray shows no acute cardiopulmonary findings. Upon reevaluation of patient, she remains vitally stable and comfortable throughout stay in ED. She has improvement of her cough today with therapeutics in the emergency room. I did offer to send in patient a cough syrup, however due to breast-feeding, she declines any medications at this time and will opt to use [id number]. Voices understanding and is agreeable to plan of care. Denies any further questions or concerns at this time. Diagnostics: COVID-19, chest x-ray two-view Therapeutics: Nebulized lidocaine Prescription: None Impression: Bronchitis Plan: 1. Use cough drops and/or other over the counter medications as needed for throat discomfort as discussed. Drink small but frequent sips of fluid to prevent dehydration. 2. Alternate Ibuprofen and Tylenol as directed for pain and discomfort. 3. Follow up with your primary care provider as discussed. 4. Return to the ED as needed and as discussed. Definitive disposition and diagnosis as appropriate pending reevaluation and review of above. - Related Data Allergies Allergy/AdvReac Type Severity Reaction Status Date / Time No Known Allergies Allergy Verified 02/23/21 09:35 Home Meds: Home Meds . 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: Musculoskeletal History: Reports: None Neurological History: Reports: None Psychiatric History: Reports: None Endocrine/Metabolic History: Reports: None Hematologic History: Reports: None Immunologic History: Reports: None Oncologic (Cancer) History: Reports: None Dermatologic History: Reports: None - Infectious Disease History Infectious Disease History: Reports: Chicken Pox - Past Surgical History Head Surgeries/Procedures: Reports: None Social & Family History - Family History Family Medical History: No Pertinent Family History Cardiac: Reports: Hypertension - Tobacco Use Tobacco Use Status *Q: Never Tobacco User - Caffeine Use Caffeine Use: Reports: None - Recreational Drug Use Recreational Drug Use: No ED ROS GENERAL - Review of Systems Review Of Systems: Comprehensive ROS is negative, except as noted in HPI. ED EXAM, GENERAL - Physical Exam Exam: See Below (see dictation) Course - Vital Signs Last Recorded V/S: Last Vital Signs Temp 97.6 F 02/23/21 12:13 Pulse 89 02/23/21 12:13 Resp 18 02/23/21 12:13 BP 117/79 02/23/21 12:13 Pulse Ox 97 02/23/21 12:13 - Orders/Labs/Meds Labs: Laboratory Tests 02/23/21 Range/Units 09:34 SARS-CoV-2 RNA (SHAYY) NEGATIVE (NEGATIVE) Meds: Medications Discontinued Medications Generic Name Dose Route Start Last Admin Trade Name Romulo PRN Reason Stop Dose Admin Lidocaine HCl 5 ml 02/23/21 10:53 02/23/21 11:11 Lidocaine 1% 5 Ml Sdv INJECT 02/23/21 10:54 5 ml ONETIME ONE Administration Departure - Departure Time of Disposition: 11:58 Disposition: Home, Self-Care 01 Clinical Impression: Bronchitis - Discharge Information Instructions: Acute Bronchitis, Adult, [id number] Referrals: Johnson Lee MD [Primary Care Provider] - Forms: ED Department Discharge Additional Instructions: The following information is given to patients seen in the emergency department who are being discharged to home. This information is to outline your options for follow-up care. We provide all patients seen in our emergency department with a follow-up referral. The need for follow-up, as well as the timing and circumstances, are variable depending upon the specifics of your emergency department visit. If you don't have a primary care physician on staff, we will provide you with a referral. We always advise you to contact your personal physician following an emergency department visit to inform them of the circumstance of the visit and for follow-up with them and/or the need for any referrals to a consulting specialist. The emergency department will also refer you to a specialist when appropriate. This referral assures that you have the opportunity for follow-up care with a specialist. All of these measure are taken in an effort to provide you with optimal care, which includes your follow-up. Under all circumstances we always encourage you to contact your private physician who remains a resource for coordinating your care. When calling for follow-up care, please make the office aware that this follow-up is from your recent emergency room visit. If for any reason you are refused follow-up, please contact the [facility] at and asked to speak to the emergency department charge nurse. [facility] [address] [place] [address] [place] [address] 1. Use cough drops and/or other over the counter medications as needed for throat discomfort as discussed. Drink small but frequent sips of fluid to prevent dehydration. 2. Alternate Ibuprofen and Tylenol as directed for pain and discomfort. 3. Follow up with your primary care provider as discussed. 4. Return to the ED as needed and as discussed. Sepsis Event Note (ED) - Evaluation Sepsis Screening Result: No Definite Risk - Focused Exam Vital Signs: Vital Signs Temp Pulse Resp BP Pulse Ox 02/23/21 12:13 97.6 F 89 18 117/79 97 02/23/21 10:38 98 F 104 H 20 138/79 98 02/23/21 10:33 104 H 02/23/21 09:29 97.4 F 119 H 20 132/79 97
[2021-02-23 12:14] VITALS: BP 117/79; PULSE 89
== END 2021-02-23 12:15 | disposition home or self-care (01) ==
LOC: MW.ED 09:13
DX: J40 Bronchitis, not specified as acute or chronic (principal); Z20.822 Contact with and (suspected) exposure to COVID-19
CPT/HCPCS: 71046; 71046-26; 99283-25; U0002